=== PATIENT | female | born 2000 | race Two or more races ===

== ENCOUNTER 2018-10-14 09:10 | Emergency (ER) | payer MEDICAID ==
[~2018-10-14] VITALS: Ht 165.1 cm; Wt 59.0 kg
[2018-10-14 12:07] LABS: Basophils # (auto) 0 uL; Basophils % (auto) 0.7 % (0.0-2.0); Eosinophils # (auto) 0.1 uL; Eosinophils % (auto) 1.5 % (0.0-7.0); Hematocrit 39.1 % (36.0-46.0); Hemoglobin 13.5 g/dL (12.2-16.2); Lymphocytes # (auto) 1.4 uL; Lymphocytes % (auto) 24.8 % (10.0-50.0); Mean Corpuscular Hgb Conc. 34.5 g/dL (32.0-36.0); Mean Corpuscular Volume 89.9 fL (80.0-100.0); Monocytes # (auto) 0.7 uL; Monocytes % (auto) 12.3 % (0.0-12.0); Neutrophils # (auto) 3.4 uL; Neutrophils % (auto) 60.7 % (37.0-80.0); Platelet Count (auto) 179 10^3/uL (140-450); Red Blood Cells 4.35 10^6/uL (4.0-5.20); Red Cell Distribution Width 14.5 % (11.8-14.3); White Blood Cell 5.6 10^3/uL (4.4-10.8)
[2018-10-14 12:24] LABS: Calcium 8.6 mg/dL (8.5-10.1); Potassium 3.9 mmol/L (3.5-5.1)
[2018-10-14 12:26] LABS: BUN/Creatinine Ratio 13.8
[2018-10-14 13:35] LABS: Urine Bacteria FEW /hpf (None Seen); Urine Blood 1+ /uL (Negative); Urine Specific Gravity 1.019 (1.001-1.035); Urine WBC 10 /hpf (0 - 5)
[2018-10-14 14:30] VITALS: BP 108/57
== END 2018-10-14 15:04 | disposition home or self-care (01) ==
LOC: ER 09:10
DX: N93.8 Other specified abnormal uterine and vaginal bleeding (principal); N39.0 Urinary tract infection, site not specified
CPT/HCPCS: 36415; 76801; 80048; 81001; 84702; 85025